=== PATIENT | male | born 1980 | race Caucasian/White ===

== ENCOUNTER → 2022-08-02 08:05 | Outpatient (CLI) | payer BC, SELFPAY ==
--- NOTE | ~2022-08-02 | XR_ITS ---
EXAMINATION: XR shoulder RT min 2V INDICATION: Right shoulder pain TECHNIQUE: Four views of the right shoulder are submitted. COMPARISON: None FINDINGS: Normal alignment. No fracture. Glenohumeral and acromioclavicular joint spaces are normal. Soft tissues are unremarkable. IMPRESSION: 1. No acute osseous abnormality. Reviewed, dictated and finalized at location B. 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
== END ==
PROVIDERS: PCP Nurse Practitioner; Visit Provider Nurse Practitioner
DX: M25.511 Pain in right shoulder (principal)
CPT/HCPCS: 73030

== ENCOUNTER 2023-12-05 10:59 | Outpatient (CLI) | payer OTHER, SELFPAY ==
[2023-12-05 20:13] LABS: Basophils Percent Auto 0.4 % (0.2-1.2); Eosinophils Absolute Auto 0.1 K/mm3 (0-0.3); Eosinophils Percent Auto 0.8 % (0-4.4); Hematocrit 52.2 % (42.0-52.0); Hemoglobin 18.1 g/dL (14.0-18.0); Immature Granulocyte Absolute 0.02 K/mm3 (0.00-0.031); Immature Granulocyte Percent A 0.3 % (0-0.5); Lymphocytes Absolute Auto 2.34 K/mm3 (0.9-3.2); Lymphocytes Percent Auto 31.4 % (18.3-44.2); Mean Corpuscular HGB Conc 34.7 g/dl (32-36); Mean Corpuscular Hemoglobin 30.3 pg (26-34); Mean Corpuscular Volume 87.3 fl (80-100); Mean Platelet Volume 11.5 fl (7.4-10.4); Monocytes Absolute Auto 0.7 K/mm3 (0.1-0.6); Monocytes Percent Auto 8.7 % (2.6-8.5); Neutrophils Absolute Auto 4.4 K/mm3 (1.3-6.7); Neutrophils Percent Auto 58.4 % (45.5-73.1); Platelet Count Result 192 k/mm3 (150-375); Red Blood Count 5.98 M/mm3 (4.6-6.20); Red Cell Distribution Width 13.1 % (11.5-14.5); White Blood Count 7.5 K/mm3 (4.5-10.0)
[2023-12-05 20:27] LABS: Alanine Aminotransferase 39 U/L (6-50); Albumin Level 4.8 g/dL (3.5-5.1); Alkaline Phosphatase 44 U/L (38-126); Anion Gap 7 mmol/L (4-12); Aspartate Amino Transferase 66 U/L (17-59); Blood Urea Nitrogen 16 mg/dL (9-20); Calcium 9.6 mg/dL (8.4-10.2); Carbon Dioxide 27 mmol/L (22-30); Chloride 103 mmol/L (98-107); Cholesterol 193 mg/dL (0-200); Estimated Glomerular Filt Rate > 60; Glucose 94 mg/dL (65-110); HDL Direct 42 mg/dL; Potassium 4.6 mmol/L (3.4-5.0); Sodium 137 mmol/L (137-145); Triglycerides 64 mg/dL (<150)
[2023-12-05 20:38] LABS: LDL Cholesterol Direct 136 mg/dL
[2023-12-05 20:58] LABS: Vitamin D 25 Hydroxy 82.1 ng/mL
[2023-12-05 21:34] LABS: Folic Acid 17.4 ng/mL (2.76->20)
== END 2023-12-05 11:00 | disposition home or self-care (01) ==
LOC: ANHGOSHLAB 11:00
PROVIDERS: PCP Nurse Practitioner; Visit Provider Nurse Practitioner
DX: Z13.21 Encounter for screening for nutritional disorder (principal); Z13.220 Encounter for screening for lipoid disorders; Z13.228 Encounter for screening for other metabolic disorders
CPT/HCPCS: 36415; 80053; 80061; 82306; 82607; 82746; 85025

== ENCOUNTER 2024-12-15 11:11 | Outpatient (CLI) | payer OTHER, SELFPAY ==
--- NOTE | ~2024-12-15 | US_ITS ---
US soft tissue LE RT 12/15/2024 11:26 Indication: Localized swelling of the right knee Procedure: High-resolution Limited ultrasound of the right knee Comparison: No prior studies for comparison. Findings: In the area of palpable concern inferior to the right knee there is an oval predominantly h ypoechoic heterogeneously enhancing mass measuring 2.3 x 3 x 1.0 cm Impression: 1: Nonspecific vascular mass of the right knee in the area of palpable concern. Consider percutaneous biopsy to exclude malignancy. Reviewed, dictated and finalized at location A. Impression: 1: Nonspecific vascular mass of the right knee in the area of palpable concern. Consider percutaneous biopsy to exclude malignancy.
== END 2024-12-15 11:12 | disposition home or self-care (01) ==
PROVIDERS: PCP Nurse Practitioner; Visit Provider Nurse Practitioner
DX: R22.41 Localized swelling, mass and lump, right lower limb (principal)
CPT/HCPCS: 76882

== ENCOUNTER 2025-02-21 10:15 | Outpatient (CLI) | payer OTHER, SELFPAY ==
--- NOTE | ~2025-02-21 | MR_ITS ---
EXAMINATION: MR knee RT wo/w con DATE: 02/21/2025 11:27 INDICATION: Mass anterior to the right knee TECHNIQUE: Magnetic resonance imaging (MRI) of the right knee was performed without intravenous contr ast. Sequences included coronal PD-weighted FSE, coronal PD-weighted FS FSE, sagittal T2-weighted FS E, sagittal PD-weighted FS FSE, axial PD weighted fat saturated FSE, axial T1-weighted FS FSE and pos tcontrast axial, sagittal and coronal T1-weighted FS FSE. COMPARISON: None. FINDINGS: Medial compartment: Medial meniscus is normal. Articular cartilage is normal. Lateral compartment: Lateral meniscus is normal. Articular cartilage is normal. Patellofemoral compartment: Partial-thickness chondral fissuring along the trochlear groove. Patellar cartilage is normal. Ligaments and tendons: Anterior and posterior cruciate ligaments are normal. The medial collateral ligament and fibular max ateral ligament complex are normal. Small these pelvic ossicle to distal aspect of the otherwise norm al patellar tendon. Mild distal quadriceps tendinopathy without tear. The visualized medial and later al hamstring tendons as well as the iliotibial band are normal. Fluid: Physiologic amount of fluid in the joint space. No loose osteochondral bodies identified. Osseous/other: Small low signal intensity bone island at the lateral femoral condyle. Otherwise normal bone marrow s ignal. No fracture or pathologic marrow replacing process. T2 hyperintense and enhancing subcutaneous mass anterior to the patellar tendon which measures 2.4 x 3.0 x 1.2 cm. No other abnormal masses or abnormal enhancing lesions identified. IMPRESSION: 1. 3.0 x 2.4 x 1.2 cm T2 hyperintense solid avidly enhancing subcutaneous mass anterior to the patell ar tendon consistent with neoplasm which could be either benign or malignant. Imaging features are mo st suggestive of a schwannoma or peripheral nerve sheath tumor. Recommend ultrasound-guided core need le biopsy. Reviewed, dictated and finalized at location A. IMPRESSION: 1. 3.0 x 2.4 x 1.2 cm T2 hyperintense solid avidly enhancing subcutaneous mass anterior to the patellar tendon consistent with neoplasm which could be either benign or malignant. Imaging features are most suggestive of a schwannoma or pe ripheral nerve sheath tumor. Recommend ultrasound-guided core needle biopsy.
== END 2025-02-21 10:16 | disposition home or self-care (01) ==
PROVIDERS: PCP Nurse Practitioner; Visit Provider Plastic Surgery
DX: R22.41 Localized swelling, mass and lump, right lower limb (principal)
CPT/HCPCS: 73723; A9577

== ENCOUNTER 2025-03-24 06:56 | Outpatient (NON) | payer OTHER, SELFPAY ==
--- NOTE | 2025-03-24 | S_PTH ---
PATIENT: Sonny Gallegos LOC: [facility] U#:[id number] AGE/SX: 44/M ROOM: RE03/24/[address]: Lamonte Chester MD : 1980 BED: DIS: 03/24/2025 SPEC #: [id number] RECD: 03/25/25 07:54 STATUS: CHARLES REQ #: [id number] AYAH: 03/24/25 00:[address]: Lamonte Chester DEPT: [facility] Surgical RECD BY: Neida Brown ENTERED: 03/25/25 07:55 SP TYPE: Surgical OTHR DR: Myrtle Patel, VALORIE Tissues: A - Mass Procedures: Hematoxylin and Eosin Stain Gross and Microscopic Level 3
--- OUTSIDE RECORDS SUMMARY | 2025-03-25 06:59 | XMS_ITS | Clinical Summary ---
Author Organization [facility] Address [address] [place] [address] Care Team Providers Care [employer] Name Role Phone No, Physician Primary Care Provider [phone] Allergies No known active allergies Medications tamsulosin (FLOMAX) 0.4 mg extended release capsule Take 1 capsule (0.4 mg total) by mouth daily. 30 capsule 10/29/2017 Active doxycycline 100 mg tablet TAKE 1 TABLET BY MOUTH ONCE DAILY WITH FOOD 01/26/2021 Active Active Problems No known active problems Family History Medical History Relation Name Comments Heart failure Maternal Grandfather Stroke Maternal Grandfather Relation Name Status Comments Maternal Grandfather Social History Tobacco Use Types Packs/Day Years Used Date Smoking Tobacco: Never Smokeless Tobacco: Never Alcohol Use Standard Drinks/Week Comments No 0 (1 standard drink = 0.6 oz pur e alcohol) Personal Safety Answer Date Recorded Getting School Help Needed Not on file 10/18 Sex and Gender Information Value Date Recorded Sex Assigned at Not on file Legal Sex Male 7:26 PM CDT Gender Identity Male 2021 7:19 AM CDT Sexual Orientation Segal 2021 7: 19 AM CDT Obstetrics History Last Filed Vital Signs Vital Sign Reading Time Taken Comments Blood Pressure 144/89 04/03/2021 3:31 PM CDT Pulse 64 04/03/2021 3:31 PM CDT Temperature 37.4 C (99.4 F) 10/29/2017 7:29 PM CDT Respiratory Rate 16 10/29/2017 9:08 PM CDT Oxygen Saturation 100% 10/29/2017 9:08 PM CDT Inhaled Oxygen Concentration - - Weight 108.4 kg (239 lb) 04/03/2021 3:31 PM CDT Height 193 cm (6' 4) 04/03/2021 3:31 PM CDT Body Mass Index 29.09 04/03/2021 3:31 PM CDT Plan of Treatment Not on file Insurance [employer] OOS Care Teams [employer] Relationship Specialty Start Date End Date No, Physician PCP - General 10/29/17
== END 2025-03-24 06:57 | disposition home or self-care (01) ==
LOC: ANHLAB 03-25 06:57
PROVIDERS: PCP Nurse Practitioner; Visit Provider Plastic Surgery
DX: R22.41 Localized swelling, mass and lump, right lower limb (principal)
CPT/HCPCS: 88304

== ENCOUNTER 2025-03-24 07:04 | Day surgery (SDC) | payer OTHER, SELFPAY ==
[2025-03-15 13:22] VITALS: BMI 30.5
--- NOTE | 2025-03-24 06:59 | P.OP_ITS ---
Procedure Note - Detailed Date of Procedure 03/24/25 Pre-op Diagnosis Localized Swelling Mass and Lump Right Lower Limb Post-op Diagnosis Same Procedure Performed right knee mass excision Surgeon Lamonte Chester MD Economics Department Chair greta bloom pa-c Anesthesia MAC Description of Procedure INFORMED CONSENT: The patient was seen and examined and marked in the pre-op area.? The patient signed the consent form. PROCEDURE IN DETAIL:The patient taken back to OR on the stretcher in supine po sition. Time out performed with anesthesia, surgeon and staff agreeing on patient's name site and surgery to be performed SCDs were placed on the left lower extremity and inflated. After anesthesia administered sedation I injected {8}cc 1%lido with epi and 0.5% marcaine plain at the operative site which was prepped and draped in sterile fashion. I proceeded with making a longitudinal incision over the right knee mass through skin and dermis with 15 blade scalpel. Littler scissors and Bovie cautery was used to dissect through subcutaneous tissue down to the fascia noting the mass appeared to be subfascial. I made an incision in the fascia with 15 blade scalpel. Littler scissors were then used to circumferentially dissect around this firmer mass using Bovie cautery as necessary. I irrigated with normal saline. The fascia was repaired with 3-0 Vicryl suture. 3-0 Vicryl was used for dermis. 3-0 Monocryl was used for subcuticular closure. The diameter of the mass measured 2 cm A dressing of dermabond, 4x4 and pressure dressing was applied. The patient was then awaken from anesthesia and transferred to the recovery room in stable condition.? Complications - none EBL- 0cc Disposition - home in stable condition Greta Bloom PA-C was essential for positioninig, retraction, clsoure and dressing placement [facility] Billing Surgery - Charge Forward: Surgery Billing ([id number] for greta)
--- NOTE | 2025-03-24 06:59 | WPDHPUPDATE1 ---
History and Physical Update Update Date/Time: 03/24/25 06:59 Patient seen and examined in pre-operative holding area. No interval change in medical history or symptoms. Patient recalls previous discussion of benefits and alternatives to procedure. Continues to desire to proceed with right knee mass excision. Reviewed procedure, post-op expectations and risks including but not limited to bleeding, infection, injury to tendon/nerve/vessel, stiffness, recurrence, no change or worsening of symptoms. I discussed possible use of assistants and their participation in the case. Patient stated understanding and signed the consent form wishing to proceed.
[2025-03-24 07:34] VITALS: BP 140/84; PULSE 75; RESP 18; TEMP 36.8; O2SAT 100
[2025-03-24] MEDS: ACETAMINOPHEN 500 MG TABLET 1000 MG PO (07:35)
[2025-03-24] MEDS: LACTATED RINGERS 1,000 ML 30 ML IV CONT (07:41)
--- NOTE | 2025-03-24 08:19 | P.PNAN_ITS ---
Anes - Initial Pre Proc Eval Procedure: Operation Date: 03/24/25 08:45 Proposed Procedures p Excision Mass Right Knee - Lamonte Chester MD Date/Time: 03/24/25 08:19 Surgeon: Lamonte Chester MD Pre Op Diagnosis: Localized Swelling Mass and Lump Right Lower Limb Patient Data Age: 44 Gender: M Height: 1.93 m Weight: 114.65 kg Last Vital Signs Temp 98.2 F 03/24/25 07:34 Pulse 75 03/24/25 07:34 Resp 18 03/24/25 07:34 BP 140/84 03/24/25 07:34 Pulse Ox 100 03/24/25 07:34 O2 Del Method Room Air 03/24/25 07:34 Allergies Allergy/AdvReac Type Severity Reaction Status Date / Time No Known Allergies Allergy Verified 03/24/25 07:33 Home Medications ?Medication ?Instructions ?Recorded ?Confirmed ?Type tramadol 50 mg tablet 50 mg PO Q6H PRN pain #12 ta bs 03/24/25 Rx Patient hx anesthesia problems: none Family hx anesthesia problems: none Results Review: All pre-operative results and documents have been reviewed as part of the pre- operative evaluation. [facility] Past Medical History Medical History Adult acne HSV-2 (herpes simplex virus 2) infection Right wrist fracture Family History Family History Mother Hypertension, Onset Age: 70 Patient's mother is in good health Father Hypertension, Onset Age: 73 Patient's father is in good health Grandparent Cerebrovascular accident Malignant neoplasm of prostate Family history of malignant neoplasm of breast Sibling Breast cancer Social History Social History Smoking status: Never smoker Alcohol intake: current Do You Feel Safe in your Home?: Yes Lack of Transportation: No Lack of Food: Never True Current Housing: I Have Housing Concerned About Future Housing: No Difficulty Paying Gas/Electric Bills: No Difficulty Paying for Meds: No Currently Unemployed: No Education: Bachelor's Degree Difficulty w/ Childcare or Family Care: No Anes - Eval Final PreProcedure Day of Procedure 03/24/25 08:19 Heart: regular rate and rhythm Lungs: clear to auscultation Airway: Mallampati scale class II Neurological: alert and oriented Last oral intake: >/= 8 hours ASA classification: I Anesthetic plan: proceed Anesthesia type and monitoring: monitored anesthesia care Results Review: All pre-operative results and documents have been reviewed as part of the pre- operative evaluation. Informed Consent: The patient's anesthetic plan and its attendant risks and benefits were discussed with the patient/family/POA. Questions were solicited and answers provided to the satisfaction of the patient/family/POA.
[2025-03-24] MEDS: BUPivacaine HCL 0.5% 10 ML AMP INFILTRATE (08:46)
[2025-03-24] MEDS: LIDO 1%/EPINEPHRINE 1:100,000 20 ML VIAL 3 ML INFILTRATE (08:47)
--- NOTE | 2025-03-24 09:01 | WPDANESPN ---
Anes - Prog Note Post-Op Date/Time: 03/24/25 09:01 Vital Signs: Last Vital Signs Temp 98.2 F 03/24/25 07:34 Pulse 75 03/24/25 07:34 Resp 18 03/24/25 07:34 BP 140/84 03/24/25 07:34 Pulse Ox 100 03/24/25 07:34 O2 Del Method Room Air 03/24/25 07:34 Pain Score (VAS): no Patient Feedback: Patient satisfied with anesthetic care.
[2025-03-24 09:03] VITALS: BP 129/51; PULSE 74; RESP 14; O2SAT 95
[2025-03-24 09:20] VITALS: BP 114/77; PULSE 79; RESP 16; O2SAT 97
[2025-03-24 09:45] VITALS: BP 130/90; PULSE 65; RESP 16; O2SAT 97
== END 2025-03-24 09:45 | disposition home or self-care (01) ==
PROVIDERS: PCP Nurse Practitioner; Visit Provider Plastic Surgery
PROC: (CPT 27328; principal; 2025-03-24 08:45)
DX: M79.89 Other specified soft tissue disorders (principal)
CPT/HCPCS: 27328